=== PATIENT | male | born 2000 | race Two or more races ===

== ENCOUNTER 2021-02-18 10:22 | Emergency (ER) | payer SELFPAY ==
[~2021-02-18] VITALS: Ht 175.3 cm; Wt 104.3 kg
[2021-02-18] MEDS ORDERED: LIDOCAINE 1% HCL (LOCAL ANESTH.) INJ 20ML MDV IJ ONE (11:00)
[2021-02-18 11:11] VITALS: BP 128/76
== END 2021-02-18 11:31 | disposition home or self-care (01) ==
LOC: ER 10:22
DX: S81.011A Laceration without foreign body, right knee, initial encounter (principal); W26.8XXA Contact with other sharp object(s), not elsewhere classified, initial encounter; Y93.39 Activity, other involving climbing, rappelling and jumping off; Y92.89 Other specified places as the place of occurrence of the external cause; Y99.8 Other external cause status
CPT/HCPCS: 12002; 99283; J2001